=== PATIENT | male | born 1965 | race Caucasian/White ===

== ENCOUNTER 2022-06-22 00:32 | Emergency (ER) | payer OTHER ==
[2022-06-22 00:41] VITALS: BP 160/97
[2022-06-22] MEDS ORDERED: LIDOCAINE PATCH 5% TOP STA (00:55)
[2022-06-22] MEDS ORDERED: oxyCODONE/ACET 5/325 Prepack 4 PO STA (01:35)
--- NOTE | 2022-06-22 01:39 | ED Physician Documentation ---
History of Present Illness - Stated complaint Stated Complaint: L SIDE & R KNEE PX - Chief complaint Chief Complaint: Trauma Ch/Bk - History obtained from History obtained from: Patient - Additonal information Additional information: Patient is a 56-year-old Presenting for evaluation of right knee and left back pain That started at 9:30 PM. Patient was at work on a truck on a roadway. He tripped on steps while on "[employer] truck and fell onto a drop cage for barrels". He believes he fell approximately 3 feet. He did not strike his head or lose consciousness. He hit his back area on an edge of the cage. He did continue to work but had increasing amounts of pain and thus is presented to the emergency department.Pain is sharp and worse with movements. It is better at rest. He does not take a blood thinner.Patient denies dizziness, chest pain, difficulty breathing or other symptoms prior to falling and states that he tripped on the step. Review of Systems Constitutional: denies: Fever Nose: denies: Congestion Throat: denies: Sore throat Cardiac: denies: Chest pain / pressure Respiratory: denies: Dyspnea GI: denies: Abdominal Pain Musculoskeletal: reports: Back pain, Joint pain Neurologic: denies: Syncope, Head injury PD PAST MEDICAL HISTORY - Present Medications Home Medications: Ambulatory Orders Medication Instructions Recorded Confirmed Lidocaine Patch 5% [Lidoderm Patch] 1 patch TOP DAILY PRN #10 patch 06/22/22 Oxycodone HCl/Acetaminophen 1 each PO Q6H PRN #10 tablet 06/22/22 [Percocet 5-325 mg Tablet] - Allergies Allergies/Adverse Reactions: Allergies Allergy/AdvReac Type Severity Reaction Status Date / Time No Known Drug Allergies Allergy Verified 06/22/22 00:41 PD ED PE NORMAL - General General: Alert and oriented X 3, No acute distress, Well developed/nourished - HEENT HEENT: Atraumatic, Moist mucous membranes - Neck Neck: Supple, no meningeal sign, No bony TTP, C-Spine cleared by NEXUS criteria - Cardiac Cardiac: RRR, No murmur, Strong equal pulses - Respiratory Respiratory: No respiratory distress, Clear bilaterally - Abdomen Abdomen: Normal bowel sounds, Soft, Non tender, Non distended - Back Back: No spinal TTP, Other (Tenderness to left Lower Posterior ribs With no crepitus, no contusions, no flail segments) - Derm Derm: Warm and dry - Extremities Extremities: No deformity, Other (Tenderness to right medial knee with no deformities, full range of motion without significant pain, distal pulses intact, no bony tenderness elsewhere in extremities) Results - Vitals Vitals: Vital Signs - 24 hr 06/22/22 00:38 Temperature 36.5 C Heart Rate 88 Respiratory 18 Rate Blood Pressure 160/97 H O2 Saturation 100 Oxygen O2 Source Room air PD MEDICAL DECISION MAKING - ED course Complexity details: reviewed results, re-evaluated patient ED course: Patient presenting for evaluation of pain after fall to right knee and left lower ribs. X-rays obtained with no signs of fracture or dislocation. Patient counseled on continuing with supportive care as well as return precautions. He is ambulatory at discharge. Departure - Departure Disposition: 01 Home, Self Care Clinical Impression: Rib pain on left side Right knee pain Qualifiers: Chronicity: acute Qualified Code(s): M25.561 - Pain in right knee Condition: Stable Instructions: ED Knee Pain UKO, ED Contusion Vs Minor Fx Rib Prescriptions: Lidocaine Patch 5% [Lidoderm Patch] 1 patch TOP DAILY PRN #10 patch PRN Reason: pain Oxycodone HCl/Acetaminophen [Percocet 5-325 mg Tablet] 1 each PO Q6H PRN #10 tablet PRN Reason: Severe Pain Comments: You have been evaluated after a fall at work. X-rays of your chest and right knee were obtained and I do not see signs of a broken or out of place bone. However you may still have injuries to the surrounding muscles, ligaments in these areas.Please continue with ice and rest to help with your pain. I have also sent a prescription for lidocaine patches and pain medication to [facility] in [place]. Please follow-up with your primary care doctor next week to ensure that you are able to return to work without limitations. If you have any worsening symptoms please return to the emergency department. I am prescribing a short course of narcotic pain medication for you. These are potentially dangerous and addictive medications that should be used carefully. These medications may constipate you. Take an zmev-asj-pmtrawi stool softener (docusate) twice daily with plenty of water while taking these medications. If you go 24 hours without a bowel movement, take amha-rsk-uhqpdhx miralax, per package instructions. Do not drink or drive while taking these medications. If you received narcotic or sedating medications while in the emergency department, do not drive for 24 hours. Store this medication in a safe, secure place and out of reach of children. It is a violation of federal law to give or sell this medication to another person or to use in a manner other than prescribed. The ED will not refill narcotic prescriptions, including prescriptions lost or stolen. To dispose of unwanted medications: 1. [facility] at [address] in [place] has a medication drop box. They accept prescription medications (in pill form) Saturday through Saturday 9:00 a.m. to 5:00 p.m. 2. [facility] accepts prescription medications (in pill form only) for disposal year round. Call for more information. 3. Contact the [facility] for the next [facility] sponsored prescription drug collection event. , [phone], or [phone]; Note that many narcotic pain relievers also contain Tylenol/acetaminophen. Please ensure that your total dose of acetaminophen from all sources does not exceed 3 g (3000 mg) per day. I have sent prescription medication to the following [facility] in [place]. Located in: [facility] Address: [address] [place] [id number] Forms: Activity restrictions
--- NOTE | 2022-06-22 01:43 | XRAY Report ---
PROCEDURE: Chest 1 View X-Ray INDICATIONS: L sided rib pain/fall TECHNIQUE: One view of the chest was acquired. COMPARISON: None. FINDINGS: Surgical changes and devices: None. Lungs and pleura: No pleural effusions or pneumothorax. Lungs are clear. Mediastinum: Mediastinal contours appear normal. Heart size is normal. Bones and chest wall: No displaced rib fracture identified. No suspicious bony lesions. Overlying s oft tissues appear unremarkable. IMPRESSION: 1. No acute cardiopulmonary disease. 2. No displaced rib fracture identified. Reviewed by: Carson Sanchez MD on 06/22/2022 1:42 AM PDT Approved by: Carson Sanchez MD on 06/22/2022 1:42 AM PDT Station ID: [id number]
--- NOTE | 2022-06-22 01:44 | XRAY Report ---
PROCEDURE: Knee 3 View RT INDICATIONS: fall/pain TECHNIQUE: 3 views of the right knee were acquired. COMPARISON: None. FINDINGS: Bones: No fractures or dislocations. No suspicious bony lesions. Soft tissues: No joint effusion. No suspicious soft tissue calcifications. IMPRESSION: 1. No fracture or dislocation. Reviewed by: Carson Sanchez MD on 06/22/2022 1:43 AM PDT Approved by: Carson Sanchez MD on 06/22/2022 1:43 AM PDT Station ID: [id number]
== END 2022-06-22 02:15 | disposition home or self-care (01) ==
LOC: ED 00:32
DX: M25.561 Pain in right knee (principal); R07.81 Pleurodynia; W17.89XA Other fall from one level to another, initial encounter; Y99.0 Civilian activity done for income or pay
CPT/HCPCS: 1040M; 71045; 73562; 99282; 99284; A9270

== ENCOUNTER 2022-07-04 15:16 | Emergency (ER) | payer OTHER ==
[2022-07-04 15:59] VITALS: BP 147/86
--- NOTE | 2022-07-04 16:15 | ED Physician Documentation ---
PD HPI CHEST PAIN - Stated complaint Stated Complaint: SIDE PX - Chief complaint Chief Complaint: Abd Pain - History obtained from History obtained from: Patient - Additional information Additional information: He fell out of his work truck about 2 weeks ago hitting his left chest wall and right knee on the way down. He was seen here and had negative chest x-ray and negative right knee x-ray, the knee is improving, but he still has persistent severe left lower rib pain. Review of Systems Constitutional: reports: Reviewed and negative Eyes: reports: Reviewed and negative Throat: reports: Reviewed and negative PD PAST MEDICAL HISTORY - Present Medications Home Medications: Ambulatory Orders Medication Instructions Recorded Confirmed Lidocaine Patch 5% [Lidoderm Patch] 1 patch TOP DAILY PRN #10 patch 06/22/22 Oxycodone HCl/Acetaminophen 1 each PO Q6H PRN #10 tablet 06/22/22 [Percocet 5-325 mg Tablet] Oxycodone HCl/Acetaminophen 1 - 2 each PO Q6H PRN #20 tablet 07/04/22 [Percocet 5-325 mg Tablet] - Allergies Allergies/Adverse Reactions: Allergies Allergy/AdvReac Type Severity Reaction Status Date / Time No Known Drug Allergies Allergy Verified 07/04/22 15:59 PD ED PE NORMAL - Vitals Vital signs reviewed: Yes - General General: Alert and oriented X 3, No acute distress - Cardiac Cardiac: No murmur - Respiratory Respiratory: No respiratory distress, Clear bilaterally, Other (Focally tender over the 11th and 12th ribs on the left midline anterior. No bruising. No abdominal tenderness.) - Extremities Extremities: Other (Normal gait) - Neuro Neuro: Alert and oriented X 3, Normal speech - Psych Psych: Normal mood, Normal affect Results - Vitals Vitals: Vital Signs - 24 hr 07/04/22 15:52 Temperature 36.7 C Heart Rate 86 Respiratory 17 Rate Blood Pressure 147/86 H O2 Saturation 98 Oxygen O2 Source Room air PD MEDICAL DECISION MAKING - ED course ED course: Previous radiology reviewed, he had a single view chest x-ray which cuts off the lower ribs and therefore would probably not be diagnostic for a lower rib fracture. I offered repeat imaging but clinically he probably does have a rib fracture and he was happy with the clarification of diagnosis and some time off. Departure - Departure Disposition: 01 Home, Self Care Clinical Impression: Rib fracture Qualifiers: Encounter type: initial encounter Rib fracture type: single rib Fracture type: closed Laterality: left Qualified Code(s): S22.32XA - Fracture of one rib, left side, initial encounter for closed fracture Condition: Good Record reviewed to determine appropriate education?: Yes Instructions: ED Fx Rib Prescriptions: Oxycodone HCl/Acetaminophen [Percocet 5-325 mg Tablet] 1 - 2 each PO Q6H PRN #20 tablet PRN Reason: pain Comments: I sent your prescription [facility] the [facility] that Dr. Champagne did buddy previously. As discussed clinically you likely have a little left rib fracture and I suspect this will hurt for several more weeks. In addition to the prescription painkillers you can take ibuprofen [id number]-jqm-[id number] as needed. Return for new or worsening symptoms. I am prescribing a short course of narcotic pain medication for you. These are potentially dangerous and addictive medications that should be used carefully. These medications may constipate you. Take an alog-zgx-fucripn stool softener (docusate) twice daily with plenty of water while taking these medications. If you go 24 hours without a bowel movement, take gycx-uks-xjdbcek miralax, per package instructions. Do not drink or drive while taking these medications. If you received narcotic or sedating medications while in the emergency department, do not drive for 24 hours. Store this medication in a safe, secure place and out of reach of children. It is a violation of federal law to give or sell this medication to another person or to use in a manner other than prescribed. The ED will not refill narcotic prescriptions, including prescriptions lost or stolen. To dispose of unwanted medications: 1. [facility] at [address] in [place] has a medication drop box. They accept prescription medications (in pill form) Saturday through Saturday 9:00 a.m. to 5:00 p.m. 2. The [facility] accepts prescription medications (in pill form only) for disposal year round. Call for more information. 3. Contact the [facility] for the next [facility] sponsored prescription drug collection event. , [phone], or [phone]; Note that many narcotic pain relievers also contain Tylenol/acetaminophen. Please ensure that your total dose of acetaminophen from all sources does not exceed 3 g (3000 mg) per day. Forms: Activity restrictions
== END 2022-07-04 16:27 | disposition home or self-care (01) ==
LOC: ED 15:16
DX: S22.32XA Fracture of one rib, left side, initial encounter for closed fracture (principal); M25.561 Pain in right knee; W17.89XA Other fall from one level to another, initial encounter; Y99.0 Civilian activity done for income or pay
CPT/HCPCS: 99282

== ENCOUNTER 2022-07-16 15:04 | Emergency (ER) | payer OTHER, BC ==
[2022-07-16 15:32] VITALS: BP 146/94
--- NOTE | 2022-07-16 16:36 | ED Physician Documentation ---
History of Present Illness - Stated complaint Stated Complaint: RT KNEE PX - Chief complaint Chief Complaint: Ext Problem - History obtained from History obtained from: Patient - Additonal information Additional information: The patient comes to the emergency department chief complaint of persistent right knee pain after an injury several weeks ago. The patient had x-rays at that time and was not found to have any fracture or dislocation. He has also continued to have some left rib as well, though this was also worked up and negative. 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 He is also wondering if he can have a little more pain medicine because he has run out of what they initially gave him a few weeks ago. He does admit that the rib pain has improved quite a bit since it first happened and the knee pain is somewhat better but not compl etely. He states he has been trying to get into see primary care but the appointments are too far out to be able to help him right now. No other complaints at this time. Review of Systems Ten Systems: 10 systems reviewed and negative Constitutional: reports: Reviewed and negative Eyes: reports: Reviewed and negative Ears: reports: Reviewed and negative Nose: reports: Reviewed and negative Throat: reports: Reviewed and negative Cardiac: reports: Reviewed and negative Respiratory: reports: Reviewed and negative GI: reports: Reviewed and negative : reports: Reviewed and negative Skin: reports: Reviewed and negative Musculoskeletal: reports: Extremity pain, Joint pain Neurologic: reports: Reviewed and negative Psychiatric: reports: Reviewed and negative Endocrine: reports: Reviewed and negative Immunocompromised: reports: Reviewed and negative PD PAST MEDICAL HISTORY - Present Medications Home Medications: Ambulatory Orders Medication Instructions Recorded Confirmed Lidocaine Patch 5% [Lidoderm Patch] 1 patch TOP DAILY PRN #10 patch 06/22/22 Oxycodone HCl/Acetaminophen 1 each PO Q6H PRN #10 tablet 06/22/22 [Percocet 5-325 mg Tablet] Oxycodone HCl/Acetaminophen 1 - 2 each PO Q6H PRN #20 tablet 07/04/22 [Percocet 5-325 mg Tablet] HYDROcod/ACETAM 5/325 [[place] 5/325] 1 tablet PO HS PRN #14 tablet 07/16/22 - Allergies Allergies/Adverse Reactions: Allergies Allergy/AdvReac Type Severity Reaction Status Date / Time No Known Drug Allergies Allergy Verified 07/19/22 15:20 PD ED PE NORMAL - Vitals Vital signs reviewed: Yes - General General: Alert and oriented X 3, No acute distress, Well developed/nourished - HEENT HEENT: Atraumatic, PERRL, EOMI, Moist mucous membranes - Neck Neck: Supple, no meningeal sign - Cardiac Cardiac: RRR, No murmur, Strong equal pulses - Respiratory Respiratory: No respiratory distress, Clear bilaterally - Abdomen Abdomen: Soft, Non tender, Non distended - Derm Derm: Warm and dry, Other (Mild contusion, medial aspect of right knee.) - Extremities Extremities: No deformity, No edema, Other (Tenderness to palpation of medial aspect of right knee. No deformity. Mildly limited range of motion secondary to pain.) - Neuro Neuro: Alert and oriented X 3 - Psych Psych: Normal mood, Normal affect PD ED PE EXPANDED - Free text exam Free text exam: Mild tenderness palpation left lateral rib cage. Results - Vitals Vitals: Oxygen O2 Source Room air PD MEDICAL DECISION MAKING - ED course Complexity details: considered differential, d/w patient ED course: I discussed with the patient that I would extend his work note a little longer and give him a small amount of pain medication to take at home but that this would be the last time we would manage this from the emergency department. The patient is 4 weeks out from his injury and should not continue to need narcotic pain medication at this point in time. I have advised him that if he cannot use the knee without a lot of pain, then he will have to scale down the amount of physical activity he is doing on the knee. This should come before any further narcotic prescription. I have also advised him to go to his primary doctor's office and asked to be placed on a cancellation list. He may also call each day to see if there happens to be an opening. Departure - Departure Disposition: 01 Home, Self Care Clinical Impression: Rib fracture Qualifiers: Encounter type: subsequent encounter Rib fracture type: single rib Fracture type: closed Laterality: left Fracture healing: with routine healing Qualified Code(s): S22.32XD - Fracture of one rib, left side, subsequent encounter for fracture with routine healing Knee contusion Qualifiers: Encounter type: initial encounter Laterality: right Qualified Code(s): S80.01XA - Contusion of right knee, initial encounter Instructions: ED Fx Rib Prescriptions: HYDROcod/ACETAM 5/325 [[place] 5/325] 1 tablet PO HS PRN #14 tablet PRN Reason: Pain Comments: Your ribs and knee are gradually improving and this is to be expected. However, it is very common for injuries like this to have pain that slowly subsides over a number of weeks. As such, it is appropriate to start cutting down the amount of pain medication you are using. Since it is mainly at night that your ribs are bothering you, you should take the prescribed narcotic pain medication only at night before you go to bed. The rest of the day, you should use ibuprofen. You may take 600 mg every 6 hours, as needed. Please follow-up with your primary care physician as planned. You will need to refer to primary doctor for any further work notes or pain medication. Discharge Date/Time: 07/16/22 17:02
== END 2022-07-16 17:02 | disposition home or self-care (01) ==
LOC: ED 15:04
DX: S22.32XA Fracture of one rib, left side, initial encounter for closed fracture (principal); S80.01XA Contusion of right knee, initial encounter; X58.XXXA Exposure to other specified factors, initial encounter
CPT/HCPCS: 99282

== ENCOUNTER 2022-07-19 14:58 | Emergency (ER) | payer BC ==
[2022-07-19 15:20] VITALS: BP 142/88
== END 2022-07-19 16:33 | disposition left against medical advice (07) ==
LOC: ED 14:58
DX: Z53.29 Procedure and treatment not carried out because of patient's decision for other reasons (principal)